=== PATIENT | female | born 1945 | race African-American/Black ===

== ENCOUNTER 2020-04-04 10:20 | Emergency (ER) | payer OTHER, MEDICAID ==
[~2020-04-04] VITALS: Ht 160 cm; Wt 48.0 kg
[2020-04-04] MEDS ORDERED: SODIUM CHLORIDE 0.9% 1,000 ML IV ONE (10:44)
[2020-04-04 11:20] LABS: CLARITY URINE CLOUDY (CLEAR); COLOR URINE YELLOW (YELLOW); KETONES URINE NEGATIVE (NEGATIVE); LEUKOCYTE ESTERASE URINE 3+ (NEGATIVE); NITRITE URINE NEGATIVE (NEGATIVE); OCCULT BLOOD URINE 3+ (NEGATIVE); PH URINE 5.5 (4.5-8.0); PROTEIN URINE NEGATIVE (NEGATIVE); SPECIFIC GRAVITY URINE 1.014 (1.005-1.030)
[2020-04-04] MEDS ORDERED: CEFTRIAXONE 1 G PREMIX 50 ML IV ONE (11:30)
[2020-04-04 11:38] LABS: CHLORIDE 113 mEq/L (98-107)
[2020-04-04 11:43] LABS: ETHANOL BLOOD < 10 mg/dL
[2020-04-04 11:47] LABS: HEMATOCRIT. 35.3 % (36.0-48.0); HEMOGLOBIN. 11.6 g/dL (12.0-16.0); MEAN CORPUSCULAR HEMOGLOBIN 31.2 pg (28.0-32.0); MEAN CORPUSCULAR VOLUME 95.1 fL (81.0-99.0); PLATELET 133 x1000/uL (130-400); RED BLOOD CELL COUNT 3.72 mill/uL (4.2-5.4); RED CELL DISTRIBUTION WIDTH 14.2 % (11.6-14.6)
[2020-04-04 11:55] LABS: *AMPHETAMINES SCREEN URINE NEGATIVE (NEGATIVE); *BARBITURATES SCREEN URINE NEGATIVE (NEGATIVE); *BENZODIAZEPINES SCREEN URINE NEGATIVE (NEGATIVE); *COCAINE SCREEN URINE NEGATIVE (NEGATIVE); METHADONE URINE SCREEN NEGATIVE (NEGATIVE); OPIATES URINE SCREEN NEGATIVE (NEGATIVE); PHENCYCLIDINE URINE SCREEN NEGATIVE (NEGATIVE)
[2020-04-04 11:56] LABS: CANNABINOID URINE SCREEN NEGATIVE (NEGATIVE)
[2020-04-04 12:17] LABS: INR 1.1; PROTHROMBIN TIME 11.4 sec (9.6-11.0)
[2020-04-04 12:45] LABS: PLATELET ESTIMATE NORMAL
[2020-04-04 14:30] VITALS: BP 125/55
== END 2020-04-04 14:30 | disposition short-term general hospital (02) ==
LOC: ER 10:43
DX: N39.0 Urinary tract infection, site not specified (principal); G93.49 Other encephalopathy; D64.9 Anemia, unspecified; E78.00 Pure hypercholesterolemia, unspecified; F03.90 Unspecified dementia, unspecified severity, without behavioral disturbance, psychotic disturbance, mood disturbance, and anxiety; R41.82 Altered mental status, unspecified; R73.03 Prediabetes; Z66 Do not resuscitate; Z86.73 Personal history of transient ischemic attack (TIA), and cerebral infarction without residual deficits
CPT/HCPCS: 36415; 70450; 71045; 80053; 80305; 80320; 81003; 82962; 84484; 85025; 85610; 87086; 93005; 96361; 96365; 99285; J0696; J7030; G0480

== ENCOUNTER 2020-10-05 19:23 | Inpatient (IN) | payer OTHER, MEDICAID ==
[~2020-10-05] VITALS: Ht 160 cm; Wt 42.7 kg
[2020-10-05] MEDS ORDERED: SODIUM CHLORIDE 0.9% 1,000 ML IV ONE (19:45)
[2020-10-05 20:36] LABS: BASOPHILS % 0.3 % (0.0-2.0); EOSINOPHILS % 0.1 % (0.0-5.0); HEMATOCRIT. 46.5 % (36.0-48.0); HEMOGLOBIN. 15.3 g/dL (12.0-16.0); LYMPHOCYTES % 18.1 % (20.0-50.0); MEAN CORPUSCULAR HEMOGLOBIN 31.5 pg (28.0-32.0); MEAN CORPUSCULAR VOLUME 95.7 fL (81.0-99.0); MEAN PLATELET VOLUME 8.8 fl (7.4-10.4); MONOCYTES % 6.3 % (2.0-8.0); NEUTROPHILS % 75.2 % (40.0-76.0); PLATELET 158 x1000/uL (130-400); RED BLOOD CELL COUNT 4.86 mill/uL (4.2-5.4); RED CELL DISTRIBUTION WIDTH 13.4 % (11.6-14.6)
[2020-10-05 20:42] LABS: CHLORIDE 133 mEq/L (98-107)
[2020-10-05 20:51] LABS: CREATINE KINASE 99 IU/L (26-192)
[2020-10-05 23:52] LABS: CLARITY URINE CLOUDY (CLEAR); COLOR URINE DARK YELLOW (YELLOW); KETONES URINE 2+ (NEGATIVE); LEUKOCYTE ESTERASE URINE 2+ (NEGATIVE); NITRITE URINE NEGATIVE (NEGATIVE); OCCULT BLOOD URINE NEGATIVE (NEGATIVE); PROTEIN URINE 1+ (NEGATIVE); SPECIFIC GRAVITY URINE 1.027 (1.005-1.030)
[2020-10-06] MEDS ORDERED: CEFTRIAXONE 1 G PREMIX 50 ML IV SCH (04:30)
[2020-10-06] MEDS ORDERED: ACETAMINOPHEN 325MG TABLET PO PRN (04:30)
[2020-10-06] MEDS ORDERED: ONDANSETRON HCL 4MG/2ML INJ IV PRN (04:30)
[2020-10-06] MEDS ORDERED: GUAIFENESIN 200MG/10ML SUGAR FREE UDC PO PRN (04:30)
[2020-10-06] MEDS ORDERED: MAGNESIUM/ALUMINUM HYDROXIDE/SIMETHICONE 30ML UDC PO PRN (04:30)
[2020-10-06] MEDS ORDERED: LORAZEPAM 2MG/ML CPJ IV PRN (04:30)
[2020-10-06] MEDS ORDERED: KCL 10MEQ/50ML PREMIX 50 ML IV SCH (05:00)
[2020-10-06] MEDS: DEXTROSE 5% WATER 1,000 ML IV SCH ×2 (07:48→20:52)
[2020-10-06] MEDS: ENOXAPARIN 40MG/0.4ML SYR SUBCUT SCH (08:51)
[2020-10-06 15:13] LABS: CHLORIDE 138 mEq/L (98-107)
[2020-10-07 06:33] LABS: HEMATOCRIT. 40.3 % (36.0-48.0); HEMOGLOBIN. 13.2 g/dL (12.0-16.0); MEAN CORPUSCULAR HEMOGLOBIN 31.6 pg (28.0-32.0); MEAN CORPUSCULAR VOLUME 96.3 fL (81.0-99.0); MEAN PLATELET VOLUME 9.8 fl (7.4-10.4); PLATELET 124 x1000/uL (130-400); RED BLOOD CELL COUNT 4.19 mill/uL (4.2-5.4); RED CELL DISTRIBUTION WIDTH 13.9 % (11.6-14.6)
[2020-10-07 06:39] LABS: CHLORIDE 133 mEq/L (98-107)
[2020-10-07 08:48] LABS: PLATELET ESTIMATE SLIGHTLY DECREASED
[2020-10-07] MEDS ORDERED: CEFTRIAXONE 1 G PREMIX 50 ML IV SCH (09:00)
[2020-10-07] MEDS: ENOXAPARIN 40MG/0.4ML SYR SUBCUT SCH (09:00)
[2020-10-07] MEDS: DEXTROSE 5% WATER 1,000 ML IV SCH ×2 (10:10→23:33)
[2020-10-07 11:00] VITALS: BP 111/65
[2020-10-07] MEDS ORDERED: POTASSIUM CHLORIDE INJ 40 MEQ in DEXT 5% WATER 250 ML IV NR ×2 (11:00→18:00)
[2020-10-07 16:00] VITALS: BP 108/62
[2020-10-07] MEDS ORDERED: KEPP500 MT (17:02)
[2020-10-07] MEDS ORDERED: LORA-249 PO (17:04)
[2020-10-07 20:00] VITALS: BP 118/60
[2020-10-08 07:28] LABS: BASOPHILS % 0.2 % (0.0-2.0); EOSINOPHILS % 0.6 % (0.0-5.0); HEMATOCRIT. 38.4 % (36.0-48.0); HEMOGLOBIN. 12.9 g/dL (12.0-16.0); LYMPHOCYTES % 15.2 % (20.0-50.0); MEAN CORPUSCULAR HEMOGLOBIN 31.6 pg (28.0-32.0); MEAN PLATELET VOLUME 9.9 fl (7.4-10.4); PLATELET 137 x1000/uL (130-400); RED BLOOD CELL COUNT 4.09 mill/uL (4.2-5.4)
[2020-10-08 07:55] LABS: CHLORIDE 132 mEq/L (98-107)
[2020-10-08 08:00] VITALS: BP 108/56
[2020-10-08] MEDS: ENOXAPARIN 40MG/0.4ML SYR SUBCUT SCH (09:30)
[2020-10-08] MEDS ORDERED: POTASSIUM CHLORIDE INJ 40 MEQ in DEXT 5% WATER 500 ML IV NR ×2 (11:00→18:00)
[2020-10-08] MEDS: CEFTRIAXONE 1,000 MG in DEXTROSE 5% WATER 50 ML IV SCH (11:36)
[2020-10-08 12:00] VITALS: BP 120/70
[2020-10-08] MEDS ORDERED: LORAZEPAM 0.5MG TABLET PO PRN (12:30)
[2020-10-08] MEDS: POTASSIUM CHLORIDE 20MEQ TABLET SR PO SCH (13:42)
[2020-10-08] MEDS: LEVETIRACETAM 500MG TABLET PO SCH ×2 (13:42→22:55)
[2020-10-08 16:00] VITALS: BP 114/70
[2020-10-08 20:00] VITALS: BP 118/67
[2020-10-09] VITALS: BP 114/72
[2020-10-09] MEDS: DEXTROSE 5% WATER 1,000 ML IV SCH ×3 (01:42→18:41)
[2020-10-09 04:00] VITALS: BP 110/64
[2020-10-09 08:00] VITALS: BP 116/72
[2020-10-09] MEDS: LEVETIRACETAM 500MG TABLET PO SCH ×2 (08:47→22:40)
[2020-10-09] MEDS: ENOXAPARIN 40MG/0.4ML SYR SUBCUT SCH (08:47)
[2020-10-09] MEDS: POTASSIUM CHLORIDE 20MEQ TABLET SR PO SCH (08:47)
[2020-10-09] MEDS: CEFTRIAXONE 1,000 MG in DEXTROSE 5% WATER 50 ML IV SCH (11:10)
[2020-10-09 11:23] LABS: BASOPHILS % 0.3 % (0.0-2.0); EOSINOPHILS % 0.7 % (0.0-5.0); HEMATOCRIT. 38.9 % (36.0-48.0); HEMOGLOBIN. 12.7 g/dL (12.0-16.0); LYMPHOCYTES % 30.4 % (20.0-50.0); MEAN CORPUSCULAR VOLUME 94.7 fL (81.0-99.0); MEAN PLATELET VOLUME 10.3 fl (7.4-10.4); MONOCYTES % 4.4 % (2.0-8.0); NEUTROPHILS % 64.2 % (40.0-76.0); PLATELET 113 x1000/uL (130-400); RED CELL DISTRIBUTION WIDTH 13.6 % (11.6-14.6)
[2020-10-09 11:35] LABS: CHLORIDE 118 mEq/L (98-107)
[2020-10-09 12:00] VITALS: BP 102/60
[2020-10-09 16:00] VITALS: BP 104/63
[2020-10-09 20:00] VITALS: BP 127/89
[2020-10-10] MEDS: DEXTROSE 5% WATER 1,000 ML IV SCH ×3 (06:36→22:17)
[2020-10-10 08:00] VITALS: BP 101/72
[2020-10-10] MEDS: POTASSIUM CHLORIDE 20MEQ TABLET SR PO SCH (09:14)
[2020-10-10] MEDS: LEVETIRACETAM 500MG TABLET PO SCH ×2 (09:14→22:16)
[2020-10-10] MEDS: ENOXAPARIN 30MG/0.3ML SYR SUBCUT SCH (09:15)
[2020-10-10] MEDS: CEFTRIAXONE 1,000 MG in DEXTROSE 5% WATER 50 ML IV SCH (10:18)
[2020-10-10 11:06] LABS: CHLORIDE 115 mEq/L (98-107)
[2020-10-10 12:00] VITALS: BP 120/75
[2020-10-10 16:00] VITALS: BP 115/75
[2020-10-10 20:00] VITALS: BP 128/83
[2020-10-11] VITALS: BP 132/80
[2020-10-11 04:11] VITALS: BP 136/78
[2020-10-11 08:00] VITALS: BP 105/77
[2020-10-11] MEDS: POTASSIUM CHLORIDE 20MEQ TABLET SR PO SCH (09:49)
[2020-10-11] MEDS: ENOXAPARIN 30MG/0.3ML SYR SUBCUT SCH (09:50)
[2020-10-11] MEDS: LEVETIRACETAM 500MG TABLET PO SCH ×2 (09:50→21:39)
[2020-10-11] MEDS: DEXTROSE 5% WATER 1,000 ML IV SCH ×2 (09:50→20:45)
[2020-10-11] MEDS: CEFTRIAXONE 1,000 MG in DEXTROSE 5% WATER 50 ML IV SCH (10:11)
[2020-10-11 12:00] VITALS: BP 140/83
[2020-10-11 16:00] VITALS: BP 136/75
[2020-10-11 20:00] VITALS: BP 128/85
[2020-10-12 04:00] VITALS: BP 126/77
[2020-10-12] MEDS: DEXTROSE 5% WATER 1,000 ML IV SCH (06:46)
[2020-10-12 08:00] VITALS: BP 115/67
[2020-10-12] MEDS: ENOXAPARIN 30MG/0.3ML SYR SUBCUT SCH (10:05)
[2020-10-12] MEDS: POTASSIUM CHLORIDE 20MEQ TABLET SR PO SCH (10:05)
[2020-10-12] MEDS: LEVETIRACETAM 500MG TABLET PO SCH (10:05)
[2020-10-12 12:00] VITALS: BP 96/55
[2020-10-12 14:13] VITALS: BP 96/55
== END 2020-10-12 16:42 | DRG 640 ==
LOC: ER 19:23 → 6EST 23:30 → EDBEDREQSVC 10-06 18:24 → ENRESERV 10-07 09:39
PROVIDERS: ADMIT Hospitalist; ATTEND Hospitalist
DX: E87.0 Hyperosmolality and hypernatremia (principal); G93.41 Metabolic encephalopathy; N39.0 Urinary tract infection, site not specified; E87.1 Hypo-osmolality and hyponatremia; E87.6 Hypokalemia; F03.90 Unspecified dementia, unspecified severity, without behavioral disturbance, psychotic disturbance, mood disturbance, and anxiety; Z66 Do not resuscitate; E78.00 Pure hypercholesterolemia, unspecified; Z20.822 Contact with and (suspected) exposure to COVID-19; R77.8 Other specified abnormalities of plasma proteins; Z86.73 Personal history of transient ischemic attack (TIA), and cerebral infarction without residual deficits; Z79.899 Other long term (current) drug therapy
CPT/HCPCS: 36415; 71045; 80053; 81003; 82550; 83605; 83735; 84484; 85025; 87426; 92610; 93005; 93970; 96365; 96367; 96372; 99285; J0696; J1650; J2060; J3480; J7030; J7042; J7060; J7070